=== PATIENT | female | born 1970 ===

== ENCOUNTER 2017-11-07 19:01 | Emergency (ER) | payer BC ==
[2017-11-07 19:13] VITALS: BMI 31.8
[2017-11-07 19:19] VITALS: RESP 18
[2017-11-07] MEDS ORDERED: Sodium Chloride 0.9% 1,000 ML IV STA (19:38)
--- NOTE | 2017-11-07 19:39 | ED PDOC ---
Arrival/HPI - General Historian: Patient - History of Present Illness Time/Duration: Prior to Arrival Context: Home <Phoenix Modi - Last Filed: 11/07/17 20:31> <Shaka Rodriguez - Last Filed: 11/07/17 23:26> - General Chief Complaint: Female Genitourinary Time Seen by Provider: 11/07/17 19:10 - History of Present Illness Narrative History of Present Illness (Text): 11/07/17 19:35 This 46 yo female, post-menopausal, presents to this ED c/o intermittent left flank pain, hematuria, and vaginal bleeding x 30 minutes. Patient stated after urinating, she noticed blood in the urine. However, patient stated she has vaginal spotting. Patient was Dx. renal stone, 2 mm x 28 days ago. (Phoenix Modi) Past Medical History - Infectious Disease Hx of Infectious Diseases: None - Reproductive Menopause: Yes - Cardiac Hx Cardiac Disorders: Yes - Pulmonary Hx Respiratory Disorders: No - Neurological Hx Neurological Disorder: No - HEENT Hx HEENT Disorder: No - Renal Hx Renal Disorder: No - Endocrine/Metabolic Hx Endocrine Disorders: No - Hematological/Oncological Hx Blood Disorders: No - Integumentary Hx Dermatological Disorder: No - Musculoskeletal/Rheumatological Hx Musculoskeletal Disorders: No - Gastrointestinal Hx Gastrointestinal Disorders: No - Genitourinary/Gynecological Hx Genitourinary Disorders: No - Psychiatric Hx Psychophysiologic Disorder: No Hx Substance Use: No - Suicidal Assessment Feels Threatened In Home Enviroment: No <Phoenix Modi - Last Filed: 11/07/17 20:31> Family/Social History Smoking Status: Heavy Smoker > 10 Cigarettes Daily Hx Alcohol Use: No Hx Substance Use: No <Phoenix Modi - Last Filed: 11/07/17 20:31> Allergies/Home Meds <Phoenix Modi - Last Filed: 11/07/17 20:31> <Shaka Rodriguez - Last Filed: 11/07/17 23:26> Allergies/Adverse Reactions: Allergies FISH Allergy (Verified 11/07/17 19:13) SWELLING Home Medications: Home Meds Medication Instructions Recorded Confirmed Vitamin D 1 tab PO QWK 10/05/13 11/07/17 PARoxetine [Paxil] 20 mg PO DAILY 11/07/17 11/07/17 Physical Exam Temperature: Afebrile Blood Pressure: Normal Pulse: Regular Respiratory Rate: Normal Appearance: Positive for: Well-Appearing, Non-Toxic, Comfortable Pain Distress: None Mental Status: Positive for: Alert and Oriented X 3 - Systems Exam Head: Present: Atraumatic, Normocephalic Pupils: Present: PERRL Extroacular Muscles: Present: EOMI Conjunctiva: Present: Normal Mouth: Present: Moist Mucous Membranes Neck: Present: Normal Range of Motion Respiratory/Chest: Present: Clear to Auscultation, Good Air Exchange. No: Respiratory Distress, Accessory Muscle Use Cardiovascular: Present: Regular Rate and Rhythm, Normal S1, S2. 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 No: Vaginal Discharge, Vaginal Bleeding, Vaginal Lesions, Adenexal Tenderness, Cervical Motion Tendernes, Odor Back: Present: Normal Inspection Upper Extremity: Present: Normal Inspection. No: Cyanosis, Edema Lower Extremity: Present: Normal Inspection, Normal ROM. No: Edema Neurological: Present: GCS=15, CN II-XII Intact, Speech Normal Skin: Present: Warm, Dry, Normal Color. No: Rashes Psychiatric: Present: Alert, Oriented x 3, Normal Insight, Normal Concentration <Modi,Nahim P - Last Filed: 11/07/17 20:31> Vital Signs Temp Pulse Resp BP Pulse Ox 11/07/17 19:18 99.0 F 84 18 133/85 95 Medical Decision Making <Rian,Deenaim P - Last Filed: 11/07/17 20:31> <Shaka Rodriguez - Last Filed: 11/07/17 23:26> ED Course and Treatment: 11/07/17 20:31 Patient signed out to Dr. Rodriguez at this time. Pending CT abdomen/Pelvis w/ o contrast to r/o renal stone. Pending labs, UA (Modi,Nahim P) - Lab Interpretations Lab Results: 11/07/17 20:50 11/07/17 20:50 Lab Results 11/07/17 20:50: Sodium 143, Potassium 3.7, Chloride 108 H, Carbon Dioxide 23, Anion Gap 15, BUN 13, Creatinine 0.9, Est GFR ( Amer) > 60, Est GFR (Non- Af Amer) > 60, Random Glucose 89, Calcium 8.8, Total Bilirubin 0.1 L, AST 15, ALT 21, Alkaline Phosphatase 45, Total Protein 6.5, Albumin 3.8, Globulin 2.7, Albumin/Globulin Ratio 1.4 11/07/17 20:50: PT 10.1, INR 0.89 L, APTT 28.6 11/07/17 20:50: WBC 10.4, RBC 4.20, Hgb 11.9 L, Hct 36.3, MCV 86.4, MCH 28.3, MCHC 32.8, RDW 13.4, Plt Count 328, MPV 9.1, Gran % 53.6, Lymph % (Auto) 37.6 H , [place] % (Auto) 7.4 H, Eos % (Auto) 1.2 L, Baso % (Auto) 0.2, Gran # 5.60, Lymph # (Auto) 3.9 H, [place] # (Auto) 0.8 H, Eos # (Auto) 0.1, Baso # (Auto) 0.02 11/07/17 20:03: Urine Color Yellow, Urine Appearance Clear, Urine pH 6.5, Ur Specific [place] 1.010, Urine Protein Negative, Urine Glucose (UA) Negative, Urine Ketones Negative, Urine Blood Moderate H, Urine Nitrate Negative, Urine Bilirubin Negative, Urine Urobilinogen 0.2, Ur Leukocyte Esterase Small H, Urine RBC 2 - 5, Urine WBC 5 - 10, Ur Epithelial Cells 1 - 3, Urine Bacteria Small, Urine HCG, Qual Negative - RAD Interpretation Radiology Orders: 11/07/17 19:37 ABD & PELVIS W/O PO OR IV CONT [CT] Stat - Medication Orders Current Medication Orders: Discontinued Medications Cephalexin Monohydrate (Keflex) 500 mg PO ONCE STA PRN Reason: Protocol Stop: 11/07/17 23:06 Sodium Chloride (Sodium Chloride 0.9%) 1,000 mls @ 999 mls/hr IV .Q1H1M STA Stop: 11/07/17 20:38 Last Admin: 11/07/17 20:14 Dose: 999 mls/hr eMAR Start Stop Document 11/07/17 20:14 SF (Rec: 11/07/17 20:15 SF [id number]) Intravenous Solution Start Date 11/07/17 Start Time 20:14 End Date 11/07/17 End time 21:15 Total Infusion Time 61 Ketorolac Tromethamine (Toradol) 15 mg IVP STAT STA Stop: 11/07/17 19:39 Last Admin: 11/07/17 20:14 Dose: 15 mg MAR Pain Assessment Document 11/07/17 20:14 SF (Rec: 11/07/17 20:14 [id number] Pain Reassessment Is this a pain reassessment? Yes Sleep Is patient sleeping during reassessment? No Presence of Pain Presence of Pain Yes IVP Administration Document 11/07/17 20:14 SF (Rec: 11/07/17 20:14 [email or web address] Charges for Administration # of IVP Administrations 1 Disposition/Present on Arrival - Present on Arrival History of DVT/PE: No History of Uncontrolled Diabetes: No Urinary Catheter: No History of Decub. Ulcer: No History Surgical Site Infection Following: None <Phoenix Modi - Last Filed: 11/07/17 20:31> - Present on Arrival Any Indicators Present on Arrival: No - Disposition Have Diagnosis and Disposition been Completed?: Yes Disposition Time: 23:21 Patient Plan: Discharge <Shaka Rodriguez - Last Filed: 11/07/17 23:26> - Disposition Diagnosis: Renal colic, UTI (urinary tract infection) Disposition: HOME/ ROUTINE Condition: GOOD Discharge Instructions (ExitCare): Urinary Tract Infection, Adult (DC), Renal Colic (DC) Additional Instructions: Drink plenty of liquids/take meds as prescribed/follow up with your doctor this week Prescriptions: Cephalexin [cephalexin] 500 mg PO BID #10 cap traMADol/Acetaminophen [Ultracet 325 MG-37.5 MG] 1 tab PO Q6 PRN #16 tab PRN Reason: Pain Referrals: Destinee Villeda MD [Primary Care Provider] - Follow up with primary Forms: [employer] (Belarusian)
[2017-11-07 21:09] LABS: BASO # 0.02 K/mm3 (0.0-2.0); BASO % 0.2 % (0.0-3.0); EOS # 0.1 (0.0-0.7); EOS % 1.2 % (1.5-5.0); GRAN # 5.6 (1.4-6.5); GRAN % 53.6 % (50.0-68.0); HEMOGLOBIN 11.9 g/dL (12.0-16.0); LYMPH # 3.9 (1.2-3.4); LYMPH % 37.6 % (22.0-35.0); MEAN CELL VOLUME 86.4 fl (80.0-105.0); MEAN CORPUSCULAR HEMOGLOBIN 28.3 pg (25.0-35.0); MEAN CORPUSCULAR HGB CONC 32.8 g/dl (31.0-37.0); MEAN PLATELET VOLUME 9.1 fl (7.0-11.0); MONO # 0.8 (0.1-0.6); MONO % 7.4 % (1.0-6.0); RBC 4.2 10^6/uL (3.5-6.1); RED CELL DISTRIBUTION WIDTH 13.4 % (11.5-14.5); WHITE BLOOD COUNT 10.4 10^3/ul (4.5-11.0)
[2017-11-07 21:17] LABS: INR 0.89 (0.93-1.08); PARTIAL THROMBOPLASTIN TIME 28.6 Seconds (25.1-36.5); PROTHROMBIN TIME 10.1 SECONDS (9.4-12.5)
[2017-11-07 21:19] LABS: ALB/GLOB RATIO 1.4 (1.1-1.8); ALBUMIN 3.8 g/dL (3.0-4.8); ALT/SGPT 21 U/L (7-56); AST/SGOT 15 U/L (14-36); BLOOD UREA NITROGEN 13 mg/dL (7-21); CALCIUM 8.8 mg/dL (8.4-10.5); GFR AFRICAN-AMERICAN > 60; GFR NON-AFRICAN AMERICAN > 60
[2017-11-07 21:34] LABS: PH,URINE 6.5 (4.7-8.0); URINE BILIRUBIN NEGATIVE (NEGATIVE); URINE BLOOD MODERATE (NEGATIVE); URINE GLUCOSE (UA) NEGATIVE (NEGATIVE); URINE LEUKOCYTE ESTERASE SMALL Leu/uL (NEGATIVE); URINE PROTEIN NEGATIVE mg/dL (<30 mg/dL); URINE UROBILINOGEN 0.2 E.U./dL (<1 E.U./dL)
[2017-11-07 21:36] LABS: URINE APPEARANCE CLEAR (CLEAR); URINE COLOR YELLOW (YELLOW)
[2017-11-07 21:37] LABS: HCG,QUALITATIVE URINE NEGATIVE (NEGATIVE)
[2017-11-07 21:49] LABS: URINE BACTERIA SMALL (NEG)
--- NOTE | 2017-11-07 22:29 | CT ---
EXAM: CT Abdomen and Pelvis Without Intravenous Contrast CLINICAL HISTORY: 46 years old, female; Pain; Abdominal pain; Flank; Left; Prior surgery; Surgery date: 6+ months; Surgery type: HX rt ovary removed; Patient HX: HX kidney stone, HX vaginal bleeding; Additional info: Left flank pain TECHNIQUE: Axial computed tomography images of the abdomen and pelvis without intravenous contrast. All CT scans at this facility use one or more dose reduction techniques, viz.: automated exposure control; ma/kV adjustment per patient size (including targeted exams where dose is matched to indication; i.e. head); or iterative reconstruction technique. Coronal and sagittal reformatted images were created and reviewed. COMPARISON: No relevant prior studies available. FINDINGS: Limitations: Lack of intravenous contrast. Lung bases: Minimal atelectasis/scarring. ABDOMEN: Liver: Unremarkable. Gallbladder and bile ducts: No calcified stones. No ductal dilation. Pancreas: Unremarkable. No ductal dilation. Spleen: No splenomegaly. Adrenals: No mass. Kidneys and ureters: Punctate calculus within LEFT kidney. Duplicated left renal collecting system. No hydronephrosis. Stomach and bowel: Segmental areas of probable underdistention of colon. No definite mural thickening. No obstruction. PELVIS: Appendix: Normal caliber. No inflammation. Bladder: Unremarkable. No stones. Reproductive: 2.2 x 2.2 x 2.6 cm fat containing lesion within left ovary. ABDOMEN and PELVIS: Intraperitoneal space: No significant fluid collection. No free air. Bones/joints: No acute fracture. Soft tissues: Unremarkable. Vasculature: Drag-tc-tpwostis atherosclerotic disease. No aneurysm. Lymph nodes: No pathologically enlarged lymph nodes. IMPRESSION: 1. Nonobstructing renal calculus. 2. Left ovarian dermoid. 3. Incidental/non-acute findings are described above.
[2017-11-07 23:36] VITALS: BP 122/82; PULSE 55; TEMP 98.9; O2SAT 97
== END 2017-11-07 23:35 | disposition home or self-care (01) ==
LOC: ED 19:01
DX: N39.0 Urinary tract infection, site not specified (principal); N23 Unspecified renal colic; F17.210 Nicotine dependence, cigarettes, uncomplicated
CPT/HCPCS: 74176; 80053; 81001; 84703; 85025; 85610; 85730; 87086; 96361; 96374; 99284; J1885; J7030

== ENCOUNTER 2018-06-10 15:24 | Inpatient (IN) | payer BC, OTHER ==
[2018-06-10 15:25] VITALS: BMI 31.8
[2018-06-10] MEDS ORDERED: Sodium Chloride 0.9% 1,000 ML IV STA (15:46)
--- NOTE | 2018-06-10 15:53 | ED PDOC ---
Arrival/HPI - General Chief Complaint: Abdominal Pain Time Seen by Provider: 06/10/18 15:28 - History of Present Illness Narrative History of Present Illness (Text): 06/10/18 15:52 47 yo female hx of kidney stones, presents with left falnk pain x 2 hours. no fevers, no adexal ttp, no vomiting, no other complaints. no hematuria. no dysuria. states known h/o of left ovarian cyst. 06/10/18 15:56 Past Medical History - Infectious Disease Hx of Infectious Diseases: None - Reproductive Menopause: Yes - Cardiac Hx Cardiac Disorders: Yes - Pulmonary Hx Respiratory Disorders: No - Neurological Hx Neurological Disorder: No - HEENT Hx HEENT Disorder: No - Renal Hx Renal Disorder: No - Endocrine/Metabolic Hx Endocrine Disorders: No - Hematological/Oncological Hx Blood Disorders: No - Integumentary Hx Dermatological Disorder: No - Musculoskeletal/Rheumatological Hx Musculoskeletal Disorders: No - Gastrointestinal Hx Gastrointestinal Disorders: No - Genitourinary/Gynecological Hx Genitourinary Disorders: No - Psychiatric Hx Psychophysiologic Disorder: No Hx Substance Use: No - Anesthesia Hx Anesthesia Reactions: No - Suicidal Assessment Feels Threatened In Home Enviroment: No Family/Social History Family/Social History: Unknown Family HX Smoking Status: Heavy Smoker > 10 Cigarettes Daily Hx Alcohol Use: No Hx Substance Use: No Allergies/Home Meds Allergies/Adverse Reactions: Allergies FISH Allergy (Verified 11/07/17 19:13) SWELLING Home Medications: Home Meds Medication Instructions Recorded Confirmed Vitamin D 1 tab PO QWK 10/05/13 06/10/18 PARoxetine [Paxil] 20 mg PO DAILY 11/07/17 06/10/18 Review of Systems - Review of Systems Constitutional: Normal Eyes: Normal ENT: Normal Respiratory: Normal Cardiovascular: Normal Gastrointestinal: Abdominal Pain (left flank) Genitourinary Female: Normal Musculoskeletal: Normal Skin: Normal Neurological: Normal Endocrine: Normal Hemo/Lymphatic: Normal Psychiatric: Normal Physical Exam Vital Signs Temp Pulse Resp BP Pulse Ox 06/10/18 15:31 99.4 F 68 18 115/77 99 Temperature: Afebrile Blood Pressure: Normal Pulse: Regular Respiratory Rate: Normal Appearance: Positive for: Well-Appearing, Non-Toxic, Comfortable Pain Distress: None Mental Status: Positive for: Alert and Oriented X 3 - Systems Exam Head: Present: Atraumatic, Normocephalic Pupils: Present: PERRL Extroacular Muscles: Present: EOMI Conjunctiva: Present: Normal Mouth: Present: Moist Mucous Membranes Neck: Present: Normal Range of Motion Respiratory/Chest: Present: Clear to Auscultation, Good Air Exchange. No: Respiratory Distress, Accessory Muscle Use Cardiovascular: Present: Regular Rate and Rhythm, Normal S1, S2. No: Murmurs Abdomen: Present: Tenderness (left flank), Other (no adexal). No: Distention, Peritoneal Signs, Rebound, Guarding Back: Present: Normal Inspection Upper Extremity: Present: Normal Inspection. No: Cyanosis, Edema Lower Extremity: Present: Normal Inspection. No: Edema Neurological: Present: GCS=15, CN II-XII Intact, Speech Normal Skin: Present: Warm, Dry, Normal Color. No: Rashes Psychiatric: Present: Alert, Oriented x 3, Normal Insight, Normal Concentration Medical Decision Making ED Course and Treatment: 06/11/18 18:34 ro renal colic vs uti/pyelo. labs imaging pending noted lipase. pt no epgiastric ttp. pain meds dosed. empriic antibiotics dosed for possible pyelo accepted by gwendolyn [place]. - RAD Interpretation Radiology Orders: 06/10/18 15:47 ABD & PELVIS W/O PO OR IV CONT [CT] Stat - Medication Orders Current Medication Orders: Sodium Chloride (Sodium Chloride 0.9%) 1,000 mls @ 1,000 mls/hr IV .Q1H STA Stop: 06/10/18 16:45 Disposition/Present on Arrival - Present on Arrival Any Indicators Present on Arrival: No History of DVT/PE: No History of Uncontrolled Diabetes: No Urinary Catheter: No History of Decub. Ulcer: No History Surgical Site Infection Following: None - Disposition Have Diagnosis and Disposition been Completed?: Yes Diagnosis: Pancreatitis, UTI (urinary tract infection) Disposition: HOSPITALIZED Disposition Time: 14:00 Patient Problems: Current Active Problems Problem Status Onset Pancreatitis Acute UTI (urinary tract infection) Acute Condition: STABLE
[2018-06-10 16:46] LABS: URINE BILIRUBIN NEGATIVE (NEGATIVE); URINE BLOOD LARGE (NEGATIVE); URINE GLUCOSE (UA) NEGATIVE (NEGATIVE); URINE LEUKOCYTE ESTERASE MODERATE Leu/uL (NEGATIVE); URINE PROTEIN NEGATIVE mg/dL (<30 mg/dL); URINE UROBILINOGEN 0.2 E.U./dL (<1 E.U./dL)
[2018-06-10 16:48] LABS: BASO # 0.02 K/mm3 (0.0-2.0); BASO % 0.2 % (0.0-3.0); EOS # 0.1 (0.0-0.7); EOS % 0.9 % (1.5-5.0); GRAN # 6.94 (1.4-6.5); GRAN % 68.1 % (50.0-68.0); HEMOGLOBIN 13.2 g/dL (12.0-16.0); LYMPH # 2.4 (1.2-3.4); LYMPH % 23.4 % (22.0-35.0); MEAN CELL VOLUME 88.1 fl (80.0-105.0); MEAN CORPUSCULAR HEMOGLOBIN 28.4 pg (25.0-35.0); MEAN CORPUSCULAR HGB CONC 32.3 g/dl (31.0-37.0); MEAN PLATELET VOLUME 9.7 fl (7.0-11.0); MONO # 0.8 (0.1-0.6); MONO % 7.4 % (1.0-6.0); RBC 4.64 10^6/uL (3.5-6.1); RED CELL DISTRIBUTION WIDTH 13.5 % (11.5-14.5); WHITE BLOOD COUNT 10.2 10^3/uL (4.5-11.0)
[2018-06-10 16:50] LABS: URINE APPEARANCE SL CLOUDY (CLEAR)
[2018-06-10 17:00] LABS: URINE AMORPHOUS SEDIMENT TRACE /hpf; URINE RBC 15 - 20 /hpf (0-2)
[2018-06-10 17:03] LABS: INR 0.82; PARTIAL THROMBOPLASTIN TIME 30.2 Seconds (25.1-36.5)
[2018-06-10] MEDS ORDERED: cefTRIAXone 1 gm 1 GM/100 ML BAG IVPB STA (17:05)
--- NOTE | 2018-06-10 17:07 | CT ---
Date of service: 06/10/2018 PROCEDURE: CT Abdomen and Pelvis without intravenous contrast HISTORY: left flank pain h/ o of renal colic COMPARISON: CT scan of the abdomen pelvis dated 11/07/2017 TECHNIQUE: Contiguous images were obtained from the domes of the diaphragms to the upper thighs without the administration of intravenous contrast. Oral contrast was not administered. Radiation dose: Total exam DLP = 1029.77 mGy-cm. This CT exam was performed using one or more of the following dose reduction techniques: Automated exposure control, adjustment of the mA and/or kV according to patient size, and/or use of iterative reconstruction technique. FINDINGS: LOWER THORAX: Unremarkable. LIVER: Unremarkable. No gross lesion or ductal dilatation. GALLBLADDER AND BILE DUCTS: Unremarkable. PANCREAS: Unremarkable. No gross lesion or ductal dilatation. SPLEEN: Unremarkable. ADRENALS: Unremarkable. No mass. KIDNEYS AND URETERS: Punctate nonobstructive left polar calculus. No hydronephrosis. No solid mass. VASCULATURE: Unremarkable. No aortic aneurysm. Aortic atherosclerotic calcification present. BOWEL: Unremarkable. No obstruction. No gross mural thickening. APPENDIX: Unremarkable. Normal appendix. PERITONEUM: Unremarkable. No free fluid. No free air. LYMPH NODES: Unremarkable. No enlarged lymph nodes. BLADDER: Unremarkable. REPRODUCTIVE: Stable 2.3 cm left ovarian dermoid. BONES: No acute fracture. OTHER FINDINGS: None. IMPRESSION: Nonobstructive punctate left interpolar calculus. No obstructive uropathy or evidence of recently passed genitourinary calculus. Additional stable findings as above.
[2018-06-10 17:10] LABS: PROTHROMBIN TIME 9.3 SECONDS (9.4-12.5)
[2018-06-10 17:25] LABS: ALB/GLOB RATIO 1.5 (1.1-1.8); ALBUMIN 4.1 g/dL (3.0-4.8); ALT/SGPT 24 U/L (7-56); AST/SGOT 23 U/L (14-36); BLOOD UREA NITROGEN 13 mg/dL (7-21); CALCIUM 9.2 mg/dL (8.4-10.5); GFR NON-AFRICAN AMERICAN > 60; LIPASE 1082 U/L (23-300)
[2018-06-10] MEDS ORDERED: Morphine 2 mg/ml ISec IVP STA (17:31)
[2018-06-10] MEDS ORDERED: Sodium Chloride 0.9% 1,000 ML IV SCH (19:15)
[2018-06-10] MEDS ORDERED: Pneumococcal 23-Valent Vaccine IM ONE (23:11)
[2018-06-10] MEDS ORDERED: Influenza Vaccine 60 mcg/0.5 mL SYR (4YR UP) IM ONE (23:11)
[2018-06-10] MEDS: Morphine 2 mg/ml ISec IVP PRN (23:38)
[2018-06-11] MEDS: Morphine 2 mg/ml ISec IVP PRN ×3 (06:40→17:06)
[2018-06-11 07:51] LABS: HEMOGLOBIN 12.9 g/dL (12.0-16.0); MEAN CELL VOLUME 88.2 fl (80.0-105.0); MEAN CORPUSCULAR HEMOGLOBIN 28.2 pg (25.0-35.0); MEAN CORPUSCULAR HGB CONC 31.9 g/dl (31.0-37.0); MEAN PLATELET VOLUME 9.1 fl (7.0-11.0); RBC 4.58 10^6/uL (3.5-6.1); RED CELL DISTRIBUTION WIDTH 13.3 % (11.5-14.5); WHITE BLOOD COUNT 10.6 10^3/uL (4.5-11.0)
[2018-06-11 08:43] LABS: ALB/GLOB RATIO 1.5 (1.1-1.8); ALT/SGPT 31 U/L (7-56); AMYLASE 486 U/L (35-125); AST/SGOT 21 U/L (14-36); BLOOD UREA NITROGEN 10 mg/dL (7-21); GFR NON-AFRICAN AMERICAN > 60
[2018-06-11 08:55] LABS: LIPASE 5137 U/L (23-300)
[2018-06-11] MEDS: Sodium Chloride 0.9% 100 ML IV SCH (16:58)
[2018-06-11] MEDS: Sodium Chloride 0.9% 1,000 ML IV SCH ×2 (17:07→22:50)
--- NOTE | 2018-06-11 17:31 | CP.PCM.CON ---
<MylesAriel moralesalka - Last Filed: 06/11/18 17:37> History of Present Illness - History of Present Illness History of Present Illness: PGY-4 GI Fellow Consult Note Pt is a 47 yo F with h/o kidney stones, ovarian cysts presenting with abd pain. She states that on 06/10 she had acute onset, sharp, left sided flank pain without radiation of symptoms. She denied any precipitating or alleviating factors including no change in PO intake. She denied F/C, N/V, Abd pain, diarrhea, weight loss, melena nor hematochezia. She denied any prior endoscopic evaluations. She states that she rarely drinks EtOH, only drinking around special occasions with last drink being "one cup" of alcohol on . In the ED, she was found to have a small L sided renal calculus w/o signs of pancreatitis, but lipase returned at 5137; therefore, GI consulted for further evaluation. 12 point ROS negative other than stated above MHx: See above SurgHx: R ovarian cyst removal Meds: Reviewed in chart FamHx: Mother with gall stones SocHx: Rare EtOH, 1 ppd Tob use since ~ 17 yo, Denied illicits All: Fish Past Patient History - Infectious Disease Hx of Infectious Diseases: None - Past Social History Smoking Status: Light Smoker < 10 Cigarettes Daily - CARDIAC Hx Cardiac Disorders: Yes Hx Hypercholesterolemia: Yes - PULMONARY Hx Respiratory Disorders: No - NEUROLOGICAL Hx Neurological Disorder: No - HEENT Hx HEENT Problems: No - RENAL Hx Chronic Kidney Disease: No Hx Kidney Stones: Yes - ENDOCRINE/METABOLIC Hx Endocrine Disorders: No - HEMATOLOGICAL/ONCOLOGICAL Hx Blood Disorders: No - INTEGUMENTARY Hx Dermatological Problems: No - MUSCULOSKELETAL/RHEUMATOLOGICAL Hx Musculoskeletal Disorders: No Hx Falls: No - GASTROINTESTINAL Hx Gastrointestinal Disorders: Yes (obese) - GENITOURINARY/GYNECOLOGICAL Hx Genitourinary Disorders: Yes (r ovary removed) - PSYCHIATRIC Hx Psychophysiologic Disorder: Yes Hx Depression: Yes - SURGICAL HISTORY Hx Surgeries: Yes (right ovary removed) - ANESTHESIA Hx Anesthesia Reactions: No Meds Allergies/Adverse Reactions: Allergies Allergy/AdvReac Type Severity Reaction Status Date / Time FISH Allergy SWELLING Verified 11/07/17 19:13 - Medications Medications: Current Medications Sodium Chloride (Sodium Chloride 0.9%) 1,000 mls @ 100 mls/hr IV .Q10H [facility] Stop: 06/12/18 08:14 Last Admin: 06/11/18 17:07 Dose: 100 mls/hr Morphine Sulfate (Morphine) 2 mg IVP Q4H PRN PRN Reason: Pain, severe (8-10) Last Admin: 06/11/18 17:06 Dose: 2 mg Paroxetine HCl (Paxil) 20 mg PO DAILY [facility] Last Admin: 06/11/18 09:58 Dose: 20 mg Physical Exam - Constitutional Appears: Well, No Acute Distress - Head Exam Head Exam: ATRAUMATIC, NORMAL INSPECTION - Eye Exam Eye Exam: EOMI. absent: Scleral icterus - ENT Exam ENT Exam: Mucous Membranes Moist. absent: Mucous Membranes Dry - Neck Exam Neck exam: Positive for: Full Rom, Normal Inspection - Respiratory Exam Respiratory Exam: NORMAL BREATHING PATTERN. absent: Accessory Muscle Use, Respiratory Distress - Cardiovascular Exam Cardiovascular Exam: REGULAR RHYTHM, RRR - GI/Abdominal Exam GI & Abdominal Exam: Normal Bowel Sounds, Soft, Tenderness (L flank ttp w/o guarding (anterior abd not ttp)). absent: Bruit, Diminished Bowel Sounds, Distended, Firm, Guarding, Hernia, Mass, Organomegaly, Pulsatile Mass, Rebound, Rigid - Rectal Exam Rectal Exam: Deferred - Extremities Exam Extremities exam: Positive for: normal inspection. Negative for: pedal edema - Neurological Exam Neurological exam: Alert, CN II-XII Intact - Psychiatric Exam Psychiatric exam: Normal Affect, Normal Mood - Skin Skin Exam: Normal Color, Warm Results - Vital Signs Recent Vital Signs: Last Vital Signs Temp 98.3 F 06/11/18 14:15 Pulse 63 06/11/18 14:15 Resp 20 06/11/18 14:15 BP 135/83 06/11/18 14:15 Pulse Ox 96 06/11/18 14:15 - Labs Result Diagrams: 06/11/18 07:00 06/11/18 07:00 Labs: Laboratory Results - last 24 hr 06/10/18 06/11/18 06/11/18 17:00 07:00 07:00 WBC 10.6 RBC 4.58 Hgb 12.9 Hct 40.4 MCV 88.2 MCH 28.2 MCHC 31.9 RDW 13.3 Plt Count 351 MPV 9.1 Sodium 141 141 Potassium 4.4 3.8 Chloride 109 H 110 H Carbon Dioxide 27 26 Anion Gap 9 L 9 L BUN 13 10 Creatinine 0.8 0.7 Est GFR ( Amer) > 60 > 60 Est GFR (Non-Af Amer) > 60 > 60 Random Glucose 117 H 93 Calcium 9.2 9.0 Magnesium 2.1 Total Bilirubin 0.2 0.4 AST 23 21 ALT 24 31 Alkaline Phosphatase 54 50 Total Protein 6.9 6.7 Albumin 4.1 4.0 Globulin 2.7 2.7 Albumin/Globulin Ratio 1.5 1.5 Amylase 486 H Lipase 1082 H 5137 H Assessment & Plan - Assessment and Plan (Free Text) Assessment: 47 yo F with h/o kidney stones presenting with flank pain and small renal stone, found to have elevate lipase. # Elevated Lipase: [address] without evidence of pancreatitis and not t ypical symptoms of pancreatitis; therefore, pt does not meet the needed 2 of 3 criteria to diagnose pancreatitis. However, does have history of longtime tob abuse putting at risk for pancreatitis with recent, albeit low volume, alcohol consumption. # Non-obstructing renal calculus # Tob Abuse: 1ppd since 17 yo Plan: - Pancreas Protocol CT and Abd+Pelvis CT with PO+IV contrast - Check FLP and Abd US - Counseled on Tob Abuse cessation - Trend labs - Cont IVF Pt seen and examined with Dr. Mayfield; please see attestation for further recs/changes. Alexander Dozier, PGY-4 <Foster Mayfield V - Last Filed: 06/12/18 00:03> Meds - Medications Medications: Current Medications Sodium Chloride (Sodium Chloride 0.9%) 1,000 mls @ 100 mls/hr IV .Q10H [facility] Stop: 06/12/18 08:14 Last Admin: 06/11/18 22:50 Dose: 100 mls/hr Morphine Sulfate (Morphine) 2 mg IVP Q4H PRN PRN Reason: Pain, severe (8-10) Last Admin: 06/11/18 17:06 Dose: 2 mg Paroxetine HCl (Paxil) 20 mg PO DAILY [facility] Last Admin: 06/11/18 09:58 Dose: 20 mg Results - Vital Signs Recent Vital Signs: Last Vital Signs Temp 98.4 F 06/11/18 21:31 Pulse 60 06/11/18 21:31 Resp 18 06/11/18 21:31 BP 124/67 06/11/18 21:31 Pulse Ox 95 06/11/18 21:31 - Labs Result Diagrams: 06/11/18 07:00 06/11/18 07:00 Labs: Laboratory Results - last 24 hr 06/11/18 06/11/18 07:00 07:00 WBC 10.6 RBC 4.58 Hgb 12.9 Hct 40.4 MCV 88.2 MCH 28.2 MCHC 31.9 RDW 13.3 Plt Count 351 MPV 9.1 Sodium 141 Potassium 3.8 Chloride 110 H Carbon Dioxide 26 Anion Gap 9 L BUN 10 Creatinine 0.7 Est GFR ( Amer) > 60 Est GFR (Non-Af Amer) > 60 Random Glucose 93 Calcium 9.0 Total Bilirubin 0.4 AST 21 ALT 31 Alkaline Phosphatase 50 Total Protein 6.7 Albumin 4.0 Globulin 2.7 Albumin/Globulin Ratio 1.5 Amylase 486 H Lipase 5137 H Attending/Attestation - Attestation I have personally seen and examined this patient.: Yes I have fully participated in the care of the patient.: Yes I have reviewed all pertinent clinical information: Yes Notes (Text): This is an addendum to GI consult report dictated by the GI Fellow. The patient was seen and examined earlier. Medical records, lab studies, imagings were reviewed. Last 24 hours events reviewed. Agreed with the above treatment plan as outlined in GI Fellow 's notes with the addition of the following this patient is admitted with a left sided flank pain Has microscopic hematuria As a renal calculus Elevated pancreatic enzymes The differential diagnosis should include ureteric colic Rule out pancreatitis in view of elevated pancreatic enzymes however pancreatic contour looked normal in the CT Would request CT scan of the abdomen and pelvis with by mouth and IV contrast with a pancreatic protocol Ultrasound scan of the abdomen to rule out gallstones Thank you very much Dr. Hayden for allowing us to participate in the care of the patient 06/12/18 00:01
--- NOTE | 2018-06-11 21:39 | HP ---
DATE OF EXAM: 06/11/2018 CHIEF COMPLAINT AND HISTORY OF PRESENT ILLNESS: This is a 47-year-old female, who is coming into the hospital complaining of left-sided flank pain. She said the pain was significant and rated at about 7-8/10. The patient says that she does have a history of kidney stones, was concerned that this may be a kidney stones. She denied any dysuria, hematuria or vomiting. The patient denies alcohol. No fevers or chills. No dysuria or frequency. All other review of symptoms are within normal limits except as mentioned. She did receive pain medications in the ER and had improvement of her symptoms. She has a history of left ovarian cyst. PAST MEDICAL HISTORY: Dyslipidemia, depression and kidney stones. PAST SURGICAL HISTORY Right ovary removed. SOCIAL HISTORY: She does smoke about half a pack per day. She denies alcohol and substance abuse. FAMILY HISTORY: Noncontributory. ALLERGIES: FISH. HOME MEDICATIONS: Paroxetine it and vitamin D. PHYSICAL EXAMINATION: VITAL SIGNS: She has a temperature of 98, pulse of 61, blood pressure 123/80, respirations 18, O2 saturation 98%. Height is 5 feet 3 inches, weight is 180 pounds, BMI is 31.9. GENERAL: The patient is lying in bed, comfortable, and in no acute distress. HEENT: Atraumatic and normocephalic. Anicteric sclerae. Moist mucosa. [place] conjunctivae. No oral lesions. NECK: No JVD, anterior and posterior adenopathy, thyromegaly, or bruits. CARDIOVASCULAR: S1 and S2 regular. No murmurs, rubs or gallops. LUNGS: Clear to auscultation bilaterally. No wheezes, rales, or rhonchi. ABDOMEN: Bowel sounds are positive. Soft, nontender and nondistended. No hepatosplenomegaly. No rebound and no guarding. EXTREMITIES: No cyanosis, clubbing, or edema. NEUROLOGIC: No facial asymmetry. Tongue is midline. No uvula deviation. Power is 5/5 upper extremities and lower extremities. Sensation intact in upper extremities and lower extremities. PSYCHIATRIC: She is awake, alert and oriented x3. No anxiety or depression. She has normal affect. GENITOURINARY: No CVA tenderness. VASCULAR: 2+ pulses in the carotid pulses and pedal pulses. SKIN: No erythema or nodules SPINE: Shows normal curvature. LABORATORY DATA: White count of 10.2, hemoglobin 13.2, platelet count is 400. INR is . Sodium is 141, potassium 4.1, creatinine 0.8. Lipase is 1082. Repeat blood cultures, amylase is 46 with a lipase of 5137. Urine shows blood is large, leukocyte esterase is moderate, and RBCs is 15-20. His abdominal CT done shows a nonobstructive calculus present in the left kidney. ASSESSMENT: Depression. PLAN: The patient is admitted to the hospital. She has acute pancreatitis. The patient has been placed on morphine for pain. She is on Paxil for her depression. This will be continued. The patient will need to continue on IV fluids. She will need further evaluation with Dr. Mayfield from GI. She is going to be placed on a liquid diet. Gallbladder is unremarkable, so unlikely to be gallstones. The patient's is also the bedside. I did update him as well about the patient's diagnosis and plan of care. She has urine cultures that have been ordered. Andres Jeffries MD
[2018-06-12] MEDS: Morphine 2 mg/ml ISec IVP PRN ×3 (01:30→15:25)
[2018-06-12] MEDS ORDERED: Barium Sulfate Susp 2.1% w/v, 2.0% w/w 450 mL Bottle PO ONE (03:16)
[2018-06-12 07:37] LABS: HDL CHOLESTEROL 39 mg/dL (29-60)
[2018-06-12 07:48] LABS: LDL CHOLESTEROL 119 mg/dL (0-129)
[2018-06-12 07:59] VITALS: TEMP 98.2
--- NOTE | 2018-06-12 10:15 | US ---
Date of service: 06/12/2018 HISTORY: abd pain, elevated lipase COMPARISON: None. TECHNIQUE: Sonographic evaluation of the abdomen. FINDINGS: LIVER: Measures 18.5 cm. Normal echogenicity of the liver parenchyma. No mass. No intrahepatic bile duct dilatation. GALLBLADDER: Unremarkable. No gallstones. COMMON BILE DUCT: Measures 3.3 mm. No stones. No dilatation. PANCREAS: Not visualized due to bowel gas RIGHT KIDNEY: Measures 10.1 x 5.0 x 5.5cm. Normal echogenicity. No calculus, mass, or hydronephrosis. LEFT KIDNEY: Measures 11.8 x 5.4 x 5.9cm. Normal echogenicity. No calculus, mass, or hydronephrosis. SPLEEN: Normal in size and contour. No mass. 8.7 x 3.2 x 2.8 AORTA: Not visible IVC: Not visible OTHER FINDINGS: None. IMPRESSION: Unremarkable abdominal sonogram.
--- NOTE | 2018-06-12 12:45 | CT ---
Date of service: 06/12/2018 PROCEDURE: CT Abdomen and Pelvis with and without contrast HISTORY: elevated lipase, atypical pancreatitis symptoms COMPARISON: None. TECHNIQUE: Contrast dose: 150 cc of Omni 350 Radiation dose: Total exam DLP = 2213.05 mGy-cm. This CT exam was performed using one or more of the following dose reduction techniques: Automated exposure control, adjustment of the mA and/or kV according to patient size, and/or use of iterative reconstruction technique. FINDINGS: LOWER THORAX: Unremarkable. LIVER: Unremarkable. No gross lesion or ductal dilatation. GALLBLADDER AND BILE DUCTS: Unremarkable. PANCREAS: Unremarkable. No gross lesion or ductal dilatation. SPLEEN: Unremarkable. ADRENALS: Unremarkable. No mass. KIDNEYS AND URETERS: Unremarkable. No hydronephrosis. No solid mass. VASCULATURE: Unremarkable. No aortic aneurysm. Aortic calcifications BOWEL: Unremarkable. No obstruction. No gross mural thickening. APPENDIX: Normal appendix. PERITONEUM: Unremarkable. No free fluid. No free air. LYMPH NODES: Unremarkable. No enlarged lymph nodes. BLADDER: Unremarkable. REPRODUCTIVE: Unremarkable. BONES: No acute fracture. OTHER FINDINGS: None. IMPRESSION: Unremarkable contrast enhanced CT of the abdomen and pelvis.
--- NOTE | 2018-06-12 14:57 | CP.PCM.PN ---
Subjective - Date & Time of Evaluation Date of Evaluation: 06/12/18 Time of Evaluation: 14:53 - Subjective Subjective: Patient seen and examined. She is feeling better, however pains is still present in the left back/flank. Objective - Vital Signs/Intake and Output Vital Signs (last 24 hours): Temp Pulse Resp BP Pulse Ox 98.2 F 55 L 20 117/71 97 06/12/18 06:00 06/12/18 06:00 06/12/18 06:00 06/12/18 06:00 06/12/18 06:00 Intake and Output: 06/12/18 06/12/18 06:59 18:59 Intake Total 1200 Balance 1200 - Medications Medications: Current Medications Dextrose/Sodium Chloride (Dextrose 5%/0.45% Ns 1000 Ml) 1,000 mls @ 100 mls/hr IV .Q10H [facility] Morphine Sulfate (Morphine) 2 mg IVP Q4H PRN PRN Reason: Pain, severe (8-10) Last Admin: 06/12/18 10:05 Dose: 2 mg Paroxetine HCl (Paxil) 20 mg PO DAILY [facility] Last Admin: 06/12/18 10:06 Dose: 20 mg - Labs Labs: 06/11/18 07:00 06/11/18 07:00 PT 9.3 SECONDS (9.4-12.5) L 06/10/18 16:10 INR 0.82 06/10/18 16:10 APTT 30.2 Seconds (25.1-36.5) 06/10/18 16:10 - Constitutional Appears: Well, Non-toxic - Head Exam Head Exam: ATRAUMATIC, NORMAL INSPECTION - Eye Exam Eye Exam: EOMI, Normal appearance - ENT Exam ENT Exam: Mucous Membranes Moist, Normal Exam - Respiratory Exam Respiratory Exam: Clear to Ausculation Bilateral, NORMAL BREATHING PATTERN - Cardiovascular Exam Cardiovascular Exam: REGULAR RHYTHM, +S1, +S2 - GI/Abdominal Exam GI & Abdominal Exam: Soft, Normal Bowel Sounds - Extremities Exam Extremities Exam: Full ROM, Normal Inspection - Back Exam Back Exam: CVA tenderness (L) - Neurological Exam Neurological Exam: Alert, Awake, Oriented x3 - Psychiatric Exam Psychiatric exam: Normal Affect, Normal Mood - Skin Skin Exam: Normal Color, Warm Assessment and Plan - Assessment and Plan (Free Text) Assessment: 47 yo F with h/o kidney stones presenting with flank pain and small renal stone, found to have elevate lipase. # Elevated Lipase: [address] without evidence of pancreatitis and not typical symptoms of pancreatitis; therefore, pt does not meet the needed 2 of 3 criteria to diagnose pancreatitis. However, does have history of longtime tob abuse putting at risk for pancreatitis with recent, albeit low volume, alcohol consumption. # Non-obstructing renal calculus # Tob Abuse: 1ppd since 17 yo Plan: - Admission CT reviewed. Possible large left ureteral stone present. Will plan to discuss with radiology. - Reviewed Pancreas Protocol CT. Pancreas appears normal. - Check FLP and Abd US - Counseled on Tob Abuse cessation - Trend labs - Cont IVF - Advance diet to low fat Pt seen and examined with Dr. Mayfield; please see attestation for further recs/changes.
--- NOTE | 2018-06-12 15:00 | PN ---
DATE: 06/12/2018 SUBJECTIVE: The patient is a 47-year-old, seen and examined, lying in bed, seems to be comfortable. She came in with left flank pain. She does have history of nephrolithiasis, for that she was under care of . During her last renal colic, she was told that she has 1 mm stone and passed on its own. She has been well since then. Denies any nausea or vomiting. No fever or chills. PHYSICAL EXAMINATION: VITAL SIGNS: The patient is afebrile. Pulse 54, respirations 20, blood pressure 117/71. LUNGS: Bilateral fair airflow. No rhonchi or crackles. HEART: S1 and S2 audible. ABDOMEN: Soft, nontender. No rebound. No guarding. NEUROLOGIC: The patient is awake, alert, oriented, communicative. Moves all extremities. She stated her left flank pain has improved significantly. LABORATORY DATA: Her initial lipase was 1082, followup is 5137. Urinalysis shows moderate leukocytes 15 to 20 rbc's, 5 to 10 wbc's. ASSESSMENT: 1. Left renal colic. 2. Pancreatitis by blood test although the patient does not have any abdominal pain symptoms and denies drinking alcohol. 3. History of depression. PLAN: We will start the patient on IV fluids. Follow up pancreatic CT scan. Awaiting GI input. Analgesic as needed and we will follow up pancreatic enzyme in a.m. also. Yulissa Hayden MD
[2018-06-12] MEDS: Dextrose 5%/0.45% NS 1,000 ML IV SCH (15:25)
[2018-06-13] MEDS: Dextrose 5%/0.45% NS 1,000 ML IV SCH (01:02)
[2018-06-13 08:35] VITALS: BP 119/70; PULSE 55; RESP 18; O2SAT 97
[2018-06-13 08:37] LABS: BASO # 0.01 K/mm3 (0.0-2.0); BASO % 0.1 % (0.0-3.0); EOS # 0.1 (0.0-0.7); EOS % 0.9 % (1.5-5.0); GRAN # 5.07 (1.4-6.5); GRAN % 66.7 % (50.0-68.0); HEMOGLOBIN 12.4 g/dL (12.0-16.0); MEAN CELL VOLUME 86.4 fl (80.0-105.0); MEAN CORPUSCULAR HEMOGLOBIN 28.1 pg (25.0-35.0); MEAN CORPUSCULAR HGB CONC 32.5 g/dl (31.0-37.0); MEAN PLATELET VOLUME 9.1 fl (7.0-11.0); MONO # 0.5 (0.1-0.6); MONO % 6.3 % (1.0-6.0); RBC 4.42 10^6/uL (3.5-6.1); RED CELL DISTRIBUTION WIDTH 12.7 % (11.5-14.5); WHITE BLOOD COUNT 7.6 10^3/uL (4.5-11.0)
[2018-06-13 08:56] LABS: ALB/GLOB RATIO 1.5 (1.1-1.8); ALBUMIN 4.2 g/dL (3.0-4.8); ALT/SGPT 22 U/L (7-56); AST/SGOT 20 U/L (14-36); BLOOD UREA NITROGEN 16 mg/dL (7-21); CALCIUM 8.9 mg/dL (8.4-10.5); GFR NON-AFRICAN AMERICAN > 60; LIPASE 195 U/L (23-300)
--- NOTE | 2018-06-13 12:12 | CP.PCM.PN ---
Subjective - Date & Time of Evaluation Date of Evaluation: 06/13/18 Time of Evaluation: 12:07 - Subjective Subjective: Patient is feeling improved with mild pain in the left flank/back. Tolerating diet. No abdominal pain. Objective - Vital Signs/Intake and Output Vital Signs (last 24 hours): Temp Pulse Resp BP Pulse Ox 98.2 F 55 L 18 119/70 97 06/13/18 06:00 06/13/18 06:00 06/13/18 06:00 06/13/18 06:00 06/13/18 06:00 Intake and Output: 06/13/18 06/13/18 06:59 18:59 Intake Total 4080 Balance 4080 - Medications Medications: Current Medications Paroxetine HCl (Paxil) 20 mg PO DAILY [facility] Last Admin: 06/13/18 08:59 Dose: 20 mg - Labs Labs: 06/13/18 07:30 06/13/18 07:30 PT 9.3 SECONDS (9.4-12.5) L 06/10/18 16:10 INR 0.82 06/10/18 16:10 APTT 30.2 Seconds (25.1-36.5) 06/10/18 16:10 - Constitutional Appears: Well, Non-toxic - Head Exam Head Exam: ATRAUMATIC, NORMAL INSPECTION - Eye Exam Eye Exam: EOMI, Normal appearance - ENT Exam ENT Exam: Mucous Membranes Moist, Normal Exam - Respiratory Exam Respiratory Exam: Clear to Ausculation Bilateral, NORMAL BREATHING PATTERN - Cardiovascular Exam Cardiovascular Exam: REGULAR RHYTHM, +S1, +S2 - GI/Abdominal Exam GI & Abdominal Exam: Soft, Normal Bowel Sounds. absent: Tenderness - Extremities Exam Extremities Exam: Full ROM, Normal Inspection - Neurological Exam Neurological Exam: Alert, Awake, Oriented x3 - Psychiatric Exam Psychiatric exam: Normal Affect, Normal Mood - Skin Skin Exam: Normal Color, Warm Assessment and Plan - Assessment and Plan (Free Text) Assessment: 47 yo F with h/o kidney stones presenting with flank pain and small renal stone, found to have elevate lipase. # Elevated Lipase: [address] without evidence of pancreatitis and not typical symptoms of pancreatitis; therefore, pt does not meet the needed 2 of 3 criteria to diagnose pancreatitis. However, does have history of longtime tob abuse putting at risk for pancreatitis with recent, albeit low volume, alcohol consumption. # Non-obstructing renal calculus # Tob Abuse: 1ppd since 17 yo Plan: - Admission CT reviewed. Kidney pole stone present on admission CT. No ureteral stones present. - Reviewed Pancreas Protocol CT. Pancreas appears normal. - Counseled on Tob Abuse cessation - Advance diet to low fat - Pain is likely related to kidney stones. Defer further management to primary/urology. - Lipase resolved Pt seen and examined with Dr. Mayfield; please see attestation for further recs/changes.
--- NOTE | 2018-06-13 12:50 | DS ---
HISTORY OF PRESENT ILLNESS: This is a 47-year-old female, who had come to the hospital complaining of abdominal pain and left flank pain. The patient was having symptoms of renal colic as well as pancreatitis. She had a CT of the pancreas done that did not show any significant abnormalities. The patient was treated conservatively, had improvement of her symptoms. She does have a left-sided kidney stone that is nonobstructive. She feels well and is going to be sent home today. She has no headaches or dizziness. She is tolerating her diet. PHYSICAL EXAMINATION: VITAL SIGNS: Temperature is 98.2, pulse is 55, blood pressure 119/70, respirations 18, and O2 saturation 97%. GENERAL: The patient is lying in bed, flat, comfortable. HEENT: No oral lesion. Anicteric sclerae. Moist mucosa. NECK: No JVD, adenopathy, or thyromegaly. CARDIOVASCULAR: S1 and S2, regular. No murmurs, rubs, or gallops. LUNGS: Clear to auscultation bilaterally. No wheeze, rales, or rhonchi. ABDOMEN: Bowel sounds are positive, soft, nontender and nondistended. EXTREMITIES: No cyanosis, clubbing or edema. ASSESSMENT: 1. Pancreatitis, resolved. 2. Left renal colic secondary to kidney stone. 3. Dyslipidemia. 4. Depression. PLAN: The patient has been on morphine for pain. The patient is going to be discharged home. She is on IV fluids. I will discontinue the patient's IV fluids. She is tolerating her diet. She is on Paxil for her depression. Condition is stable. Activity is increased as tolerated. Follow up with primary care doctor in 1 to 2 weeks. The patient was given ibuprofen 600 mg p.r.n. for pain. Andres Jeffries MD
== END 2018-06-13 14:07 | disposition home or self-care (01) | DRG 439 ==
LOC: ED 15:24 → ERH 17:30 → 5RSO 19:13
PROVIDERS: ADMIT Internal Medicine; ATTEND Internal Medicine
DX: K85.90 Acute pancreatitis without necrosis or infection, unspecified (principal); N39.0 Urinary tract infection, site not specified; N20.0 Calculus of kidney; E78.5 Hyperlipidemia, unspecified; F32.89 Other specified depressive episodes; E78.00 Pure hypercholesterolemia, unspecified; F17.210 Nicotine dependence, cigarettes, uncomplicated; N83.201 Unspecified ovarian cyst, right side; Z87.442 Personal history of urinary calculi; Z90.721 Acquired absence of ovaries, unilateral; Z91.013 Allergy to seafood